=== PATIENT | male | born 1945 | race Two or more races ===

== ENCOUNTER 2021-06-21 08:05 | Outpatient (CLI) | payer OTHER ==
[2021-06-25] MEDS ORDERED: COZAAR50 MG PO (11:27)
[2021-06-25] MEDS ORDERED: ARICEPT5 MG PO (11:27)
[2021-06-25] MEDS ORDERED: TAMS0.4C PO (11:28)
[2021-06-25] MEDS ORDERED: SEPTRA PO (11:29)
== END 2021-06-21 08:06 | disposition home or self-care (01) ==
LOC: LAB 08:05
PROVIDERS: ATTEND Internal Medicine
DX: Z01.818 Encounter for other preprocedural examination (principal)

== ENCOUNTER 2021-06-27 06:00 | Inpatient (IN) | payer OTHER ==
[~2021-06-27 06:00] MED LIST: ARICEPT5 MG PO; COZAAR50 MG PO; SEPTRA PO; TAMS0.4C PO
[2021-06-28] MEDS ORDERED: CEFUROXIME500 MG (08:13)
[2021-06-28] MEDS ORDERED: SILDENAFIL CIT100 MG (08:13)
[2021-06-28] MEDS ORDERED: BACTRIM DS TAB1 EACH (08:13)
[2021-06-28] MEDS ORDERED: FINASTERIDE5 MG (08:13)
== END 2021-06-28 10:16 | disposition home or self-care (01) | DRG 713 ==
LOC: CIR.AMB 06:00 → SURH 18:47
PROVIDERS: ADMIT Urology; ATTEND Urology
PROC: 0V508ZZ Destruction of Prostate, Via Natural or Artificial Opening Endoscopic (ICD-10-PCS; principal; 2021-06-27 07:00)
DX: N40.1 Benign prostatic hyperplasia with lower urinary tract symptoms (principal); N39.0 Urinary tract infection, site not specified

== ENCOUNTER → 2023-02-11 | Outpatient (CLI) | payer OTHER ==
[~2023-02-11] MED LIST changes: +BACTRIM DS TAB1 EACH; +CEFUROXIME500 MG; +FINASTERIDE5 MG; +SILDENAFIL CIT100 MG
== END | disposition home or self-care (01) ==
LOC: LAB 12:56
PROVIDERS: ATTEND Urology
DX: N39.0 Urinary tract infection, site not specified (principal)

== ENCOUNTER 2023-08-14 07:17 | Day surgery (SDC) | payer OTHER | END 2023-08-14 15:45 | disposition home or self-care (01) | LOC: AMB-ENDOS 07:17 | PROVIDERS: ATTEND Surgery | DX: D12.3 Benign neoplasm of transverse colon (principal); D12.0 Benign neoplasm of cecum; K57.30 Diverticulosis of large intestine without perforation or abscess without bleeding; R19.4 Change in bowel habit; Z20.822 Contact with and (suspected) exposure to COVID-19 ==